=== PATIENT | male | born 1945 | race Caucasian/White ===

== ENCOUNTER 2023-09-26 09:34 | Outpatient (OUT) | payer MEDICARE, SELFPAY ==
--- NOTE | 2023-09-26 10:00 | CA_ITS ---
Patient Name: QUINTEN KANG MR#: [id number] : 1945 Exam Date: 09/26/2023 Ordering Doctor: TIFFANIE BARRON M.D. ECHOCARDIOGRAM REPORT PROCEDURE: CA ECHO DOPPLER COMPLETE INDICATIONS: Abnormal ECG, atrial fibrillation, h/o FL, cardiac stent, COPD, hypertension, diabetes, smoker COMPARISON: None. DESCRIPTION: COMPLETE ECHOCARDIOGRAM Real-time transthoracic echocardiography with 2D, M-mode, spectral and color flow Doppler performed. QUALITY: Technical quality was good. 69 , 229#, BSA 2.19 m2, BP 124/60 LEFT VENTRICLE: Normal chamber size. Normal left ventricular wall thickness. The basal and mid inferior segments appear to be hypokinetic. Global systolic function is at the lower limits of normal. LV EF: Lower limits of normal left ventricular ejection fraction, (50-55%). DIASTOLIC: Not adequately assessed due to heart rhythm. ATRIAL SEPTUM: Visually appears intact. LEFT ATRIUM: Mild dilatation. RIGHT ATRIUM: Mild dilatation. RIGHT VENTRICLE: Normal chamber size. Systolic function is normal. TRICUSPID VALVE: Normal mobility and thickness. No stenosis with trivial regurgitation. Doppler studies reveal mildly (35-45) elevated right sided pressures. RVSP 41 mmHg MITRAL VALVE: Normal mobility and thickness. No evidence of mitral valve stenosis. Mild mitral annular calcification. Mild mitral regurgitation. AORTIC VALVE: Normal trileaflet appearance. Mildly calcified aortic valve. Mildly diminished mobility. Doppler velocity suggest no significant aortic valve stenosis. Mild aortic regurgitation. AORTIC ROOT: Normal diameter and appearance. PULMONIC VALVE: Not well visualized. No stenosis. No regurgitation. PERICARDIUM: No evidence of pericardial effusion. IVC: IVC is dilated (2.3 cm) with partial collapse. PLEURA: CONCLUSION: 1. The left ventricle is normal in size and exhibits low normal systolic function. There is evidence of wall motion abnormality involving the basal and mid inferior segments. Estimated LVEF is 50 to 55%. 2. Normal right ventricular size and systolic function. 3. Mild mitral and aortic regurgitation. 4. Mildly elevated right-sided pressures. Adult Echocardiography Procedure Report Left Ventricle LVEDD (3.7 - 5.6 cm): 4.32 cm LVESD (2.2 - 4.0 cm): 4.03 cm LVIVS thickness (0.6 - 1.2 cm): 0.70 cm LVPW thickness (0.5 - 1.0 cm): 1.06 cm LVOT Max Gradient: 3.71 mm[Hg], 1.98 mm[Hg] LVOT Area (cm2): 0.83 m/s Peak Velocity (LVOT): 0.96 m/s, 0.70 m/s Mean Velocity (LVOT): 0.48 m/s LVOT Diameter 2.17 cm Left Atrium LA Volume Index (2D A2C): 37.50 ml/m2 Left Atrium Systolic Dimension: 3.83 cm Mitral Valve Mitral Valve E-Wave Peak Velocity: 1.01 m/s Right Ventricle Aorta AO Root Diam: 3.52 cm Ascending Ao Diam: 2.84 cm Aortic Valve AoV Area (Peak Brandon): 1.62 cm2, 1.97 cm2, 1.31 cm2 AoV Area (VTI): 1.71 cm2, 2.25 cm2, 1.28 cm2 Peak Velocity(Antegrade Flow): 1.81 m/s, 2.00 m/s Peak Gradient(Antegrade Flow): 13.11 mm[Hg], 15.94 mm[Hg] Mean Velocity(Antegrade Flow): 1.22 m/s, 1.31 m/s Mean Gradient(Antegrade Flow): 6.83 mm[Hg], 7.92 mm[Hg] Velocity Time Integral: 33.22 cm, 41.10 cm Tricuspid Valve Peak Velocity (Regurgitant Flow): 2.53 m/s Pulmonic Valve Peak Velocity: 0.70 m/s Peak Gradient: 2.05 mm[Hg], 1.81 mm[Hg] Right Atrium Right Atrium Systolic Pressure: 70.49 ml, 70.49 ml Dictated by: Keyon Clark M.D. on 09/26/2023 at 16:17 Approved by: Keyon Clark M.D. on 09/26/2023 at 16:24
== END 2023-09-26 09:35 | disposition home or self-care (01) ==
LOC: CARD 09:35
PROVIDERS: PCP Family Medicine; Visit Provider Internal Medicine Cardiovascular Disease
DX: R94.31 Abnormal electrocardiogram [ECG] [EKG] (principal)
CPT/HCPCS: 93306

== ENCOUNTER 2024-11-20 09:47 | Outpatient (OUT) | payer MEDICARE, SELFPAY ==
--- OUTSIDE RECORDS SUMMARY | 2024-04-28 04:59 | XMS_ITS | Continuity of Care Document ---
Author Organization [facility] Address [address] [place] [address] Phone Care Team Providers Care Brush Maker Name Role Phone Farrukh Gomez Unavailable Unavailable Procedures Procedure Date Admin influenza virus vac FLU VACC PRSV FREE INC ANTIG Covid-19 Vaccine Administration 024 Covid-19 Vaccine, 50 Mcg Moderna 12y Plu s ADM Pfizer Covid-19 Ready To Use, Booste r Pfizer Reat To Use VAC 30MCG/0.3ML IM Ap Pfizer Booster Vaccine COVID-19 Pfizer Moderna COVID Vaccine Admin Dose 2 Moderna COVID-19 Vaccine Moderna COVID Vaccine Admin Dose 1 Moderna COVID-19 Vaccine Advance Directives Directive Yes / No Effective Date File Name No Information Encounters Encounter Description Practice Location Reason(s) For Visit Diagnoses Date Provider Providers Copied on Encounter [facility], [address], [place], [id number], [place] tel:[phone] [facility] No Information Trey Keys. [address], [place], [id number], [place]. tel:[phone] [facility], [address], [place], [id number], [place] tel:[phone] [facility] No Information Trey Keys. [address], [place], [id number], [place]. tel:[phone] [facility], [address], [place], [id number], tel:[phone] [facility] No Information Trey Keys. [address], [place], [id number], . tel:[phone] [facility], [address] [place] [address], [id number], tel:[phone] [facility] No Information Trey Keys. [address], [place], [id number], [place]. tel:[phone] [facility], [address] [place] [address], [id number], tel:[phone] [facility] No Information Trey Keys. [address], [place], [id number], [place]. tel:[phone] Family History Family Member Type Diagnosis Age At Onset No Information Immunizations Vaccine Date Status Comments FluZone HD administered Source: New Imm unization Record Spikevax 12y+ administered Source: New Im munization Record Pfizer COVID 12y and up administered Sour ce: New Immunization Record Pfizer COVID administered Source: New Imm unization Record Moderna COVID administered Source: New Im munization Record Moderna COVID administered Source: New Im munization Record Payers Payer name Insurance type Covered libertarian ID Authoriza tion(s) Medicare PPS MB [id number] Medicare PPS MB [id number] [place] [employer] Medicare Adv MB [id number] [place] [employer] Medicare Adv MB [id number] Medicare PPS MB [id number] Medicare PPS MB [id number] Medicare PPS MB [id number] [place] [employer] Medicare Adv MB [id number] Social History Type Description Quantity Date Captured Comments Alcohol Use Details Unknown Caffeine Use Details Unknown Tobacco Use Status No Information Smoking Status No Information Sex Male Sexual Orientation Straight or heterosexual Gender Identity Male Chief Complaint And Reason For Visit No Information Reason For Referral Reason For Referral No Information Plan Of Treatment Date Type Action Status Goal Unhealthy drug use screening . Due on due Goal Depression screening. Due on due Goal Hepatitis C screening. Due o n due Goal Tdap. Due on due Goal Zoster vaccine (). Due on due Goal Influenza vaccine. Due on Oc due Goal PRAPARE ASSESSMENT. Due on O due Goal Tdap Vaccine. Due on 2023 due History Of Present Illness Encounter Date Complaint History Of Prese nt Illness No Information Functional Status Date Functional Assessmen t No Information Instructions Date Instruction Additional Infor mation No Information Assessments Type Assessment Date No Information Patient Care Teams Name Effective Dates (start - stop) Status Members No Information
--- OUTSIDE RECORDS SUMMARY | 2024-07-16 07:00 | XMS_ITS ---
Author Organization [facility] [place] Address [address] [place] [address] Care Team Providers Care Change Booth Attendant Name Role Phone Krzysztofroque MIKEBao Primary Care Provider Unavail able Pato You Unavailable [phone] Allergies No Known Allergies REASON FOR VISIT 1 mos F/U COPD Medications Medication SIG (Take, Route, Frequency, Duration) Notes Start Date End Date Status Metoprolol Tartrate 50 MG Oral for 90 Days Active metFORMIN HCl 500 MG 1 tablet with a nicole l Orally Once a day for 30 day(s) 05/28/2024 Active dilTIAZem HCl ER Coated Beads 240 MG TAKE 1 CAPSULE BY MOUTH EVERY DAY Oral for 90 Days Activ e Furosemide 20 MG TAKE 1 TABLET BY DAVINA TH EACH MORNING FOR LEG SWELLING Oral for 90 Days Active Eliquis 5 MG TAKE 1 TABLET BY DAVINA TH TWICE A DAY Oral for 30 Days Active Trelegy Ellipta 200-62.5-25 MCG/ACT 1 puff Inhalation Once a day Active Trelegy Ellipta 100-62.5-25 MCG/ACT 1 puff Inhalation QD for 90 days Rinse after use Active Aspirin 81 81 MG 1 tablet Orally Once a day Active Albuterol Sulfate HFA 108 (90 Base) MCG/ACT 2 puffs as needed Inhalation every 4 hrs Active Social History Tobacco Use: Social History Observation Description Date Details (start date - stop date) Former Smoker NA - NA Tobacco Control (Standard) Question Answer Notes Tobacco use: Former smoker How long has it been since y ou last smoked? 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) Cigarette nicotine dependence with nicotine-induce d disorder (F17.219) Active confirmed Vital Signs Temperature 96.8 degrees Fahrenheit 07/16/19 25 Blood pressure systolic 111 mm Hg 07/16/19 25 Blood pressure diastolic 68 mm Hg 025 Heart Rate 70 /min 07/16/2024 Respiratory Rate 18 /min 07/16/2024 Height 69.3 in 07/16/2024 Weight 226.8 lbs 07/16/2024 BMI 33.2 kg/m2 07/16/2024 Oximetry 93 % 07/16/2024 3L O2 Activity/Resting Encounters Encounter Location Date Provider Diagnosis [facility] [place] [address] [place] [address] 07/16/2024 Pato You Centrilobular emphys [place] J43.2 ; Chronic respiratory failure with hypoxia J96.11 ; Cigarette nicotine dependence with nicotine-induced disorder F17.219 ; Other secondary pulmonary hypertension I27.29 ; CAD (coronary artery disease) I25.10 ; Atrial fibrillation, unspecified I48.91 and Obesity, class 1 E66.811 Assessments Encounter Date Diagnosis (ICD Code) Assessment Notes Treatment Notes Treatment Clinical Notes Section Notes 07/16/2024 Centrilobular emphysema (ICD-10 - J43.2) Prior treatment: Trelegy 200 ~ Trelegy 100 > Stiolto Overall, it appears that Trelegy symptoms somewhat compared to Stiolto. Admits that albuterol use has decreased from at least 3 times a day with Stiolto to 1 time a day with Trelegy. There appears to be less benefit changing Trelegy from 100 to 200 strength. Explained that the higher Trelegy dose increases the risk of oral candidiasis, and long-term use of high potency inhaled steroids can contribute to osteoporosis (though this is typically for durations of 4 years or greater). After discussing risks and benefits of treatment, the patient elected to go with Trelegy 100, which was sent into his pharmacy. Time being, he will finish out his Trelegy 200 samples, to be about 2 and half months worth. I will be interesting to see if his symptoms worsen after dropping from the 200 down to the 100 strength. If he does notice a profound difference, he can call the office and I can prescribe the Trelegy 200. F/U 6 months, or sooner PRN. 07/16/2024 Chronic respiratory failure with hypoxia (ICD-10 - J96.11) Gbhp-de-kgex encounter performed with the patient to document continued need for supplemental oxygen (O2). -Flow & directions: 2-3L/min ATC -Patient voices adherence to recommended usage: For the most part. -Symptom control on O2: Less SOB -Counseled patient not begin, restart, or continue smoking, around the O2 due to risk of fire which could result in damage to the O2 tanks & lines, smoke inhalation and flame damage to the airway, significant tijer[place], potential , property damage, and potential harm & to bystanders. Additionally, counseled it is not valentine to begin, restart, or continue smoking given the underlying pulmonary disease that led to the point of requiring O2. -Recommendations: I do not feel that 2L/min is adequate flow with ambulation; even 3L/min may be too little. Monitor his SpO2 and symptoms with ambulation. May require 4L/min to maintain SpO2 88% or greater. 07/16/2024 Cigarette nicotine dependence with nicotine-induced disorder (ICD-10 - F17.219) 1ppd x 65 years, quit briefly in 2023 PATIENT RESTARTED SMOKING!!! At 1 to 2 cigarettes a day, that is 1 to 2 cigarettes/min. I explained that there will be limited improvement in his breathing at this point if he continues to smoke. His pulmonary function is very poor. There is no AAT deficiency however. He voiced he knows he has to stop, but it is difficult as he is 79 years old and has a habit of smoking. I encouraged him to keep working at stopping. He is counseled if he does continue to smoke cannot smoke around his O2 so he does not blow up his house. He does not meet current LDCT screening criteria due to age. 07/16/2024 Other secondary pulmonary hypertension (ICD-10 - I27.29) Echo 09/21/2023 noted RVSP 41mmHg. This is mild elevation, likely due to a combination of emphysema (group 3) and cardiovascular disease such as CAD (group 2). 07/16/2024 CAD (coronary artery disease) (ICD-10 - I25.10) F/U with [facility] Cardiology. 07/16/2024 Atrial fibrillation, unspecified (ICD-10 - I48.91) F/U with [facility] Cardiology. 07/16/2024 Obesity, class 1 (ICD-10 - E66.811) Patient's weight is inducing a restrictive pulmonary physiology. Weight loss indicated: Decrease calories, increase activity. 07/16/2024 Other Plan Of Treatment Medication Medication Name Sig Start Date Stop Date Notes Trelegy Ellipta 100-62.5-25 MCG/ACT 1 puff Inhalation QD for 90 days Treatment Notes Assessment Notes Centrilobular emphysema Prior treatment: Trelegy 200 ~ Trelegy 100 > Stiolto Overall, it appears that Trelegy symptoms somewhat compared to Stiolto. Admits that albuterol use has decreased from at least 3 times a day with Stiolto to 1 time a day with Trelegy. There appears to be less benefit changing Trelegy from 100 to 200 strength. Explained that the higher Trelegy dose increases the risk of oral candidiasis, and long-term use of high potency inhaled steroids can contribute to osteoporosis (though this is typically for durations of 4 years or greater). After discussing risks and benefits of treatment, the patient elected to go with Trelegy 100, which was sent into his pharmacy. Time being, he will finish out his Trelegy 200 samples, to be about 2 and half months worth. I will be interesting to see if his symptoms worsen after dropping from the 200 down to the 100 strength. If he does notice a profound difference, he can call the office and I can prescribe the Trelegy 200. F/U 6 months, or sooner PRN. Chronic respiratory failure with hypoxia Bpbk-tt-krjz encounter performed with the patient to document continued need for supplemental oxygen (O2). -Flow & directions: 2-3L/min ATC -Patient voices adherence to recommended usage: For the most part. -Symptom control on O2: Less SOB -Counseled patient not begin, restart, or continue smoking, around the O2 due to risk of fire which could result in damage to the O2 tanks & lines, smoke inhalation and flame damage to the airway, significant tijerina, potential , property damage, and potential harm & to bystanders. Additionally, counseled it is not valentine to begin, restart, or continue smoking given the underlying pulmonary disease that led to the point of requiring O2. -Recommendations: I do not feel that 2L/min is adequate flow with ambulation; even 3L/min may be too little. Monitor his SpO2 and symptoms with ambulation. May require 4L/min to maintain SpO2 88% or greater. Cigarette nicotine dependenc e with nicotine-induced disorder 1ppd x 65 years, quit briefly in 2023 PATIENT RESTARTED SMOKING!!! At 1 to 2 cigarettes a day, that is 1 to 2 cigarettes/min. I explained that there will be limited improvement in his breathing at this point if he continues to smoke. His pulmonary function is very poor. There is no AAT deficiency however. He voiced he knows he has to stop, but it is difficult as he is 79 years old and has a habit of smoking. I encouraged him to keep working at stopping. He is counseled if he does continue to smoke cannot smoke around his O2 so he does not blow up his house. He does not meet current LDCT screening criteria due to age. Other secondary pulmonary hypertension Echo 09/21/2023 noted RVSP 41mmHg. This is mild elevation, likely due to a combination of emphysema (group 3) and cardiovascular disease such as CAD (group 2). CAD (coronary artery disease) F/U with [facility] Cardiology. Atrial fibrillation, unspecified F/U with [facility] Cardiology. Obesity, class 1 Patient's weight is inducing a restrictive pulmonary physiology. Weight loss indicated: Decrease calories, increase activity. Next Appt Details Follow Up: 6 Months, Reason: COPD, O2 Provider Name:Pato You, 01/20/2025 10:30:00 AM, [address] [place], [address], Procedure Notes * Category Sub-Category Detail Notes PFT Data: 10/19/2022 - [facility] [place] -FEV1/FVC: 36%-FEV1: 45%-FVC: 89%-GTN50-28%: 19%-Bronchodilator response: None-RV: 100%-T%-DLCO: 48%-Apparently no significant change from 07/25/2017 Alpha-1 Antitrypsin Screening Date: 05/28/2024 Genotype: MM Progress Notes * Franki MESSINA LDOB: [birth year] (79 yo M)Acc No.[id number]:07/16/2024 Follow Up Patient: Franki HARGROVE Provider: Surekha You, :1945 A ge:79 Y S ex:Male Date:07/16/2024 Address:[facility] [address] [id number] Pcp:Bao Bartlett, DO Check In:10:47 AM ESTCheck O ut:11:26 AM EST Subjective: * Chief Complaints: * 1 mos F/U COPD * HPI: G eneral: Last visit, his inhaler was changed from Stiolto to Trelegy 100 as he stated he did not believe that Stiolto was helping. He returned a call stating that he did not see a significant change from Stiolto. He said the neighbor had some samples of Trelegy 200 and he was going to take those. He does not think that there has been a tremendous improvement in his breathing regarding any inhaler, but his who is present believes that he is less short of breath on Trelegy compared to Stiolto. There does not appear to be as a profound improvement in his breathing went from the 100 to 200 strength compared to Stiolto to Trelegy 100. He denies any adverse effects on Trelegy, he is rinsing after use no complaints suggestive of thrush. Still complains of dyspnea on exertion. His SpO2 was drops with activity into the 80s despite 3L/min. He admits that he restarted smoking about 1-2 cigarettes a day. Reviewed that his chest x-ray on 06/12/2024 was unremarkable. AAT from 05/28/2024 showed normal genotype MM. MA Intake Comments:. Patient presents for a follow-up for COPD. Patient is currently on 3L O2 at home. DME:[facility]. Patient complains of SOB but states he has improved with Trelegy. Patient is using his rescue inhaler once per day. Patient reports having to use it less now than when he was taking Stiolto. Patient had a CXR performed on 06/12/2024 at [facility]. Patient is under the care of [facility] Cardiology. * ROS: G eneral/Constitutional: Fever or sweats d enies. C hange of appetite d enies. C hills d enies. W eight Change d enies. H EENT: Dry mouth d enies. S ore throat d enies. O ral Ulcers d enies. P ost Nasal Drip D enies. C ongestion D enies. H oarseness?Denies. C ardiovascular: Tachycardia d enies. E ed D enies. C hest pain d enies. P alpitations d enies. R espiratory: Chest tightness d enies. P leurisy D enies. D yspnea a dmits. C ough a dmits. H emoptysis d enies. W heezing a dmits. G astrointestinal: Acid Reflux/GERD/Heartburn d enies. D ysphagia d enies. M usculoskeletal: Arthralgias/joint pain D enies. S kin: Easy bruising d enies. N eurologic: Seizures d enies. T remor d enies. H ematology: Abnormal Bleeding d enies. P sychiatric: Anxiety d enies. * Active Problem List J43.2 Centrilobular emphys [place] Modified On:05/28/2024/U Status:confirmed J96.11 Chronic respiratory failure with hypoxia Modified On:05/28/2024/U Status:confirmed I25.10 CAD (coronary artery disease) Modified On:05/28/2024/U Status:confirmed F17.219 Cigarette nicotine d ependence with nicotine-induced disorder Modified On:07/16/2024/U Status:confirmed I48.91 Atrial fibrillation, unspecified Modified On:05/28/2024/U Status:confirmed I27.29 Other secondary pulm onary hypertension Modified On:05/28/2024/U Status:confirmed * Medical History: * Surgical History: t onsillectomy shoulder replacement-left shoulder arthroscopy-right cervical fusion/laminectomy carpal tunnel release-bilateral vascular bypass hernia repair coronary artery bypass graft * Hospitalization/Major Diagno stic Procedure: D enies Past Hospitalization * Family History: Angelika strange(s): COPD. M other: diagnosed with Unspecified heart disease. S ister(s): diagnosed with Diabetes mellitus without mention of complication, type II or unspecified type, not stated as uncontrolled. * Social History: T obacco Use: T obacco Control (Standard) T obacco use: F ormer smoker H ow long has it been since you last smoked??1-3 months A dditional Findings: Tobacco non-user E x-moderate cigarette smoker (10-19/day) Electronic Cigarette use C urrent user N o LM: Additional Tobacco Questions N umber of Years Pt Smoked: 6 5 N umber of Packs per Day: 1 When did you stop smokin03/2024. M iscellaneous: O ccupation O ccupation: R primo [employer] [place]: none. D rugs/Alcohol: D rugs H ave you used drugs other than those for medical reasons in the past 12 months? N o D oes the Patient have a History of Drug Abuse in the Past? N o Caffeine I ntake: 1 -2 cups per day Coffee Do you drink alcohol?: No. Do you smoke marijuana?: Denies. * Medications: T akingAlbuterol Sulfate HFA 108 (90 Base) MCG/ACT Aerosol Solution 2 puffs as needed Inhalation every 4 hrs Aspirin 81(Aspirin) 81 MG Tablet Delayed Release 1 tablet Orally Once a day dilTIAZem HCl ER Coated Beads 240 MG Capsule Extended Release 24 Hour TAKE 1 CAPSULE BY MOUTH EVERY DAY Oral Eliquis(Apixaban) 5 MG Tablet TAKE 1 TABLET BY MOUTH TWICE A DAY Oral Furosemide 20 MG Tablet TAKE 1 TABLET BY MOUTH EACH MORNING FOR LEG SWELLING Oral metFORMIN HCl 500 MG Tablet 1 tablet with a meal Orally Once a day Metoprolol Tartrate 50 MG Tablet Oral Trelegy Ellipta(Cynequgehyx-Babbmxgqc-Ufoqpu) 200-62.5-25 MCG/ACT Aerosol Powder Breath Activated 1 puff Inhalation Once a day Taking Albuterol Sulfate HFA 108 (90 Base) MCG/ACT Aerosol Solution 2 puffs as needed Inhalation every 4 hrs Taking Aspirin 81(Aspirin) 81 MG Tablet Delayed Release 1 tablet Orally Once a day Taking dilTIAZem HCl ER Coated Beads 240 MG Capsule Extended Release 24 Hour TAKE 1 CAPSULE BY MOUTH EVERY DAY Oral Taking Eliquis(Apixaban) 5 MG Tablet TAKE 1 TABLET BY MOUTH TWICE A DAY Oral Taking Furosemide 20 MG Tablet TAKE 1 TABLET BY MOUTH EACH MORNING FOR LEG SWELLING Oral Taking metFORMIN HCl 500 MG Tablet 1 tablet with a meal Orally Once a day Taking Metoprolol Tartrate 50 MG Tablet Oral Taking Trelegy Ellipta(Eqimcjibgtq-Tejupbqxh-Fjqthk) 200-62.5-25 MCG/ACT Aerosol Powder Breath Activated 1 puff Inhalation Once a day Not-Taking/PRNTrelegy Ellipta(Zbxdxmacwtg-Geezfhmgt-Xyrrhd) 100-62.5-25 MCG/ACT Aerosol Powder Breath Activated 1 puff Inhalation Once a day Medication List reviewed and reconciled with the patientNot-Taking/PRN Trelegy Ellipta(Gbumahiodlj-Sbderrcye-Rikzin) 100-62.5-25 MCG/ACT Aerosol Powder Breath Activated 1 puff Inhalation Once a day Medication List reviewed and reconciled with the patient * Allergies: N .K.D.A.no[Allergies Verified] Objective: * Vitals: W t:226.8lbs, Ht: 69.3 in, BP:sittin/68mm Hg, Temp:Forehead:96.8F, HR: 79 /min,70/min, RR:18/min, BMI:33.2Index, Oxygen sat %: Oxygen 3l:86 %,Oxygen 3l:93%, Ht-cm: 176.02 cm, Wt-k.87 kg. 3L O2 Activity/Resting. * Examination: E xam: GENERAL APPEARANCE: A ppears stated age. Skin N ormal. Mouth P ink and moist. No candidiasis. Oropharynx M allampati Class II. Trachea M idline. Chest M ild thoracic kyphosis. Respiratory Normal M ovements, E ffort N ormal. Auscultation D iminished breath sounds. Less coarse. Expiratory wheezes on wall with forced exhalation. Cardiac I rregularly irregular. Gastrointestinal N ormal. Vascular N o edema. Musculoskeletal N ormal posture. Neurological F ocal, intact. Psychiatric A lert and oriented x3. Mentation/Cognition N ormal. Assessment: * Assessment: 1. C entrilobular emphysema - J43.2 (Primary) 2 . C hronic respiratory failure with hypoxia - J96.11 3 . C igarette nicotine dependence with nicotine-induced disorder - F17.219 4 . O ther secondary pulmonary hypertension - I27.29 & #160; 5 . C AD (coronary artery disease) - I25.10 6 . A trial fibrillation, unspecified - I48.91 7 . O besity, class 1 - E66.811 Plan: * Treatment: 2. C hronic respiratory failure with hypoxia Notes: Hwhb-gv-smhf encounter performed with the patient to document continued need for supplemental oxygen (O2). -Flow & directions: 2-3L/min ATC -Patient voices adherence to recommended usage: For the most part. -Symptom control on O2: Less SOB -Counseled patient not begin, restart, or continue smoking, around the O2 due to risk of fire which could result in damage to the O2 tanks & lines, smoke inhalation and flame damage to the airway, significant tijer[place], potential , property damage, and potential harm & to bystanders. Additionally, counseled it is not valentine to begin, restart, or continue smoking given the underlying pulmonary disease that led to the point of requiring O2. -Recommendations: I do not feel that 2L/min is adequate flow with ambulation; even 3L/min may be too little. Monitor his SpO2 and symptoms with ambulation. May require 4L/min to maintain SpO2 88% or greater. 3. C igarette nicotine dependence with nicotine-induced disorder Notes: 1ppd x 65 years, quit briefly in 2023 PATIENT RESTARTED SMOKING!!! At 1 to 2 cigarettes a day, that is 1 to 2 cigarettes/min. I explained that there will be limited improvement in his breathing at this point if he continues to smoke. His pulmonary function is very poor. There is no AAT deficiency however. He voiced he knows he has to stop, but it is difficult as he is 79 years old and has a habit of smoking. I encouraged him to keep working at stopping. He is counseled if he does continue to smoke cannot smoke around his O2 so he does not blow up his house. He does not meet current LDCT screening criteria due to age. 4. O ther secondary pulmonary hypertension Notes: Echo 09/21/2023 noted RVSP 41mmHg. This is mild elevation, likely due to a combination of emphysema (group 3) and cardiovascular disease such as CAD (group 2). 5. C AD (coronary artery disease) Notes: F/U with [facility] Cardiology. 6. A trial fibrillation, unspecified Notes: F/U with [facility] Cardiology. 7. O besity, class 1 Notes: Patient's weight is inducing a restrictive pulmonary physiology. Weight loss indicated: Decrease calories, increase activity. * Procedures: A lpha-1 Antitrypsin: Screening Date: 1 07/28/2023. Genotype: M M. P FT: Data: 10/19/2022 - [facility] -FEV1/FVC: 36% -FEV1: 45% -FVC: 89% -COG32-49%: 19% -Bronchodilator response: None -RV: 100% -T% -DLCO: 48% -Apparently no significant change from 07/25/2017.? * Procedure Codes: * Preventive Medicine: COVID Vaccination: H as patient had COVID Vaccination? COVID Vaccination Y es 04/28/2024 Immunization Status: I nfluenza 1 . Screenings/Counseling: F ALL RISK SCREENING Fall Risk Assessment: N o falls in the past year Are you afraid of falling? N o T [place]AC[place] ACTION PLAN Patient counselled on the dangers of tobacco use and urged to quit. 0 07/16/2024 Former Educational materials on smoking cessation provided 0 07/16/2024 Former B FL ACTION PLAN Above Normal BMI Follow-up D ietary management education, guidance, and counseling * Follow Up: 6 Months (Reason: COPD, O2) * * Sign off status: Completed Visit Status: C HK (Check Out) true * Provider: Surekha You DO Date: 0 07/16/2024 Generated for Surekha boggs/Babak/Teoitting on: 0 11/20/2024 09:50 AM EDT History and Physical Notes * HPI (History of Present Illness) Category Sub-Category Detail Notes Category Not es General Patient present s for a follow-up for COPD. Patient is currently on 3L O2 at home. DME:[facility]. Patient complains of SOB but states he has improved with Trelegy. Patient is using his rescue inhaler once per day. Patient reports having to use it less now than when he was taking Stiolto. Patient had a CXR performed on 06/12/2024 at [facility]. Patient is under the care of [facility] Cardiology. Examination Category Sub-Category Detail Notes Category Not es Exam GENERAL APPEARANCE: Appears stated age Skin Normal Mouth [place] and moist. No c andidiasis Trachea Midline Chest Mild thoracic kyphos is Respiratory Normal Movements, Ef fort Normal Auscultation Diminished breath so unds. Less coarse. Expiratory wheezes on wall with forced exhalation Cardiac Irregularly irregula r Gastrointestinal Normal Vascular No edema Musculoskeletal Normal posture Neurological Focal, intact Psychiatric Alert and oriented x 3 Mentation/Cognition Normal Oropharynx Mallampati Class II
--- OUTSIDE RECORDS SUMMARY | 2024-11-12 07:43 | XMS_ITS ---
Author Organization [facility] [place] Address [address] [place] [address] Care Team Providers Care Crankshaft Grinder Name Role Phone Tri MIKEBao Primary Care Provider Unavail Pato Chávez Unavailable [phone] REASON FOR VISIT Pulmonary Clearance Encounters Encounter Location Date Provider Diagnosis Pul[facility] [place] [address] [place] [address] 11/12/2024 Pato You Plan Of Treatment Next Appt Details Provider Name:Pato You, 01/20/2025 10:30:00 AM, [address] [place], [address], Progress Notes * Franki MESSINA LDOB: [birth year] (79 yo M)Acc No.[id number]:11/12/2024 Patient: Franki HARGROVE :1945 A ge:79 Y S ex:Male Address:[facility] [address] [place], [address] * true * Date: Generated for Surekha boggs/Babak/eTransmitting on: 0 11/20/2024 09:50 AM EDT
--- OUTSIDE RECORDS SUMMARY | 2024-11-17 06:00 | XMS_ITS ---
Author Organization [facility] [place] Address [address] [place] [address] Care Team Providers Care Health Science Instructor Name Role Phone Krzysztofroque MIKEBao Primary Care Provider Unavail able Meka Youhan Unavailable [phone] Allergies No Known Allergies REASON FOR VISIT PULMONARY CLEARANCE Medications Medication SIG (Take, Route, Frequency, Duration) Notes Start Date End Date Status Metoprolol Tartrate 50 MG Oral for 90 Days Active Stiolto Respimat 2.5-2.5 MCG/ACT 2 puffs Inhalation Once a day Active metFORMIN HCl 500 MG 1 tablet with a nicole l Orally Once a day for 30 day(s) 05/28/2024 Active Eliquis 5 MG TAKE 1 TABLET BY DAVINA TH TWICE A DAY Oral for 30 Days Active Aspirin 81 81 MG 1 tablet Orally Once a day Active dilTIAZem HCl ER Coated Beads 240 MG TAKE 1 CAPSULE BY MOUTH EVERY DAY Oral for 90 Days Activ e Furosemide 20 MG TAKE 1 TABLET BY DAVINA TH EACH MORNING FOR LEG SWELLING Oral for 90 Days Active Albuterol Sulfate HFA 108 (90 Base) MCG/ACT 2 puffs as needed Inhalation every 4 hrs Active Social History Tobacco Use: Social History Observation Description Date Details (start date - stop date) Current Smoker NA - NA Tobacco Control (Standard) Question Answer Notes Tobacco use: Current every day smoker Additional Findings: Tobacco user Light cigarett e smoker (1-9 cigs/day) Additional Findings: Tobacco non-user Ex-moderat e cigarette smoker (10-19/day) Problems Problem Type SNOMED Code ICD Code Onset Dates Problem Status W/U Status Risk Notes Problem Neoplasm of bladder (275762426) Bladder tumor (D49.4) Active confirmed Vital Signs Temperature 96.7 degrees Fahrenheit 11/18/19 25 Blood pressure systolic 127 mm Hg 11/18/19 25 Blood pressure diastolic 75 mm Hg 025 Heart Rate 75 /min 11/17/2024 Respiratory Rate 20 /min 11/17/2024 Height 69.3 in 11/17/2024 Weight 220.4 lbs 11/17/2024 BMI 32.26 kg/m2 11/17/2024 Oximetry 91 % 11/17/2024 Encounters Encounter Location Date Provider Diagnosis Pulmonary Medicine [place] [address] [place] [address] 11/17/2024 Pato Avelino Encounter for preprocedural respiratory examination Z01.811 ; Centrilobular emphysema J43.2 ; Chronic respiratory failure with hypoxia J96.11 ; Cigarette nicotine dependence with nicotine-induced disorder F17.219 ; Bladder tumor D49.4 and Obesity, class 1 E66.811 Assessments Encounter Date Diagnosis (ICD Code) Assessment Notes Treatment Notes Treatment Clinical Notes Section Notes 11/17/2024 Encounter for preprocedural respiratory examination (ICD-10 - Z01.811) Preop pulmonary evaluation for cystoscopy with bladder tumor removal. Anesthesia is general. Relatively low-risk urological procedure. Patient did well with ENT surgery 08/08/2023 which also had general anesthesia. He is on Stiolto and O2 ATC for COPD, using albuterol 1-2 times a day. No exacerbations within the last ~6 months. Though Trelegy was better than Stiolto, not being on Trelegy should not interfere with any surgeries. Patient appears acceptable to proceed with the proposed surgery. He was counseled on smoking cessation again. He is to continue using Stiolto, and I recommend using it the morning of the procedure. Anesthesia should be prepared for perioperative bronchodilators. Continue O2. With the above, he may proceed with surgery from a pulmonary perspective. 11/17/2024 Centrilobular emphysema (ICD-10 - J43.2) Prior treatment: Trelegy 200 ~ Trelegy 100 > Stiolto Trelegy changed to Stiolto d/t cost. Albuterol use has increased slightly, but not significantly. More important is that he stop smoking. 11/17/2024 Chronic respiratory failure with hypoxia (ICD-10 - J96.11) Xqsl-vk-ytfb encounter performed with the patient to document continued need for supplemental oxygen (O2). -Flow & directions: 2-3L/min ATC -Patient voices adherence to recommended usage: Yes -Symptom control on O2: Decreased dyspnea -Counseled patient not begin, restart, or continue [...] to the point of requiring O2. -Recommendations: Continue O2 ATC 11/17/2024 Cigarette nicotine dependence with nicotine-induced disorder (ICD-10 - F17.219) 1ppd x 65 years, quit briefly in 2023 Discussed smoking cessation yet again and the importance of cessation not only including COPD and lung cancer risk, but also association with bladder cancer. He did not voice any intent to quit at this time. He does not meet current LDCT screening criteria due to age. 11/17/2024 Bladder tumor (ICD-10 - D49.4) Planned cystoscopy and bladder tumor removal. 11/17/2024 Obesity, class 1 (ICD-10 - E66.811) Patient's weight is inducing a restrictive pulmonary physiology. Weight loss indicated: Decrease calories, increase activity. 11/17/2024 Other Plan Of Treatment Treatment Notes Assessment Notes Encounter for preprocedural respiratory examination Preop pulmonary evaluation for cystoscopy with bladder tumor removal. Anesthesia is general. Relatively low-risk urological procedure. Patient did well with ENT surgery 08/08/2023 which also had general anesthesia. He is on Stiolto and O2 ATC for COPD, using albuterol 1-2 times a day. No exacerbations within the last ~6 months. Though Trelegy was better than Stiolto, not being on Trelegy should not interfere with any surgeries. Patient appears acceptable to proceed with the proposed surgery. He was counseled on smoking cessation again. He is to continue using Stiolto, and I recommend using it the morning of the procedure. Anesthesia should be prepared for perioperative bronchodilators. Continue O2. With the above, he may proceed with surgery from a pulmonary perspective. Centrilobular emphysema Prior treatment: Trelegy 200 ~ Trelegy 100 > Stiolto Trelegy changed to Stiolto d/t cost. Albuterol use has increased slightly, but not significantly. More important is that he stop smoking. Chronic respiratory failure with hypoxia Mdek-ko-aiwz encounter performed with the patient to document continued need for supplemental oxygen (O2). -Flow & directions: 2-3L/min ATC -Patient voices adherence to recommended usage: Yes -Symptom control on O2: Decreased dyspnea -Counseled patient not begin, restart, or continue smoking, around the O2 due to risk of fire which could result in damage to the O2 tanks & lines, smoke inhalation and flame damage to the airway, significant itjerina, potential , property damage, and potential harm & to bystanders. Additionally, counseled it is not valentine to begin, restart, or continue smoking given the underlying pulmonary disease that led to the point of requiring O2. -Recommendations: Continue O2 ATC Cigarette nicotine dependenc e with nicotine-induced disorder 1ppd x 65 years, quit briefly in 2023 Discussed smoking cessation yet again and the importance of cessation not only including COPD and lung cancer risk, but also association with bladder cancer. He did not voice any intent to quit at this time. He does not meet current LDCT screening criteria due to age. Bladder tumor Planned cystoscopy and bladder tumor removal. Obesity, class 1 Patient's weight is inducing a restrictive pulmonary physiology. Weight loss indicated: Decrease calories, increase activity. Next Appt Details Provider Name:Pato You, 01/20/2025 10:30:00 AM, [address] [place], [address], Procedure Notes * Category Sub-Category Detail Notes [place]: [place] [facility] [place]FVC[place] 36%-FEV1: 45%-FVC: 89%-NSD37-45%: 19%-Bronchodilator response: None-RV: 100%-T%-DLCO: 48%-Apparently no significant change from 07/25/2017 Alpha-1 Antitrypsin Screening Date: 05/28/2024 Genotype: MM Progress Notes * Franki MESSINA LDOB: [birth year] (79 yo M)Acc No.[id number]:11/17/2024 Progress Note Patient: Franki HARGROVE Provider: Surekha You DO :1945 A ge:79 Y S ex:Male Date:11/17/2024 Address:[facility] [address] [place], [id number] Pcp:Bao Bartlett, DO Check In:09:42 AM ESTCheck O ut:10:19 AM EST Subjective: * Chief Complaints: * P ULMONARY CLEARANCE * HPI: G eneral: PRE-OP PULMONARY EVALUATION Patient had hematuria, found to have bladder tumor. Plans are for cystoscopy with tumor removal by Dr. Rodriguez. Anesthesia is general. Since patient was last seen, he changed back from Trelegy to Stiolto - Trelegy worked better, but too expensive - Stiolto is covered by insurance. Albuterol use is 1-2 times a day - was only once with Trelegy, and prior to that, was 3x/day when on Stiolto the first time, so this could be seen as slight improvement. Unfortunately, the patient continues to smoke, and is now up from 1-2/day to ~5/day. Discussed the link between both lung and bladder cancer and tobacco abuse. He remains on O2 ~3L/min. Reports no hypoxia - SpO2 has remained in the 90's (not dropping into the 80's). Last surgery was some sort of head & neck surgery by Dr. Booth on [place]/08/2023 [place] [facility] [place] Anesthesia was general - the patient had no complications. MA Intake Comments:. Patient presents for Pulmonary Clearance. Patient is being scheduled for a Cystoscopy/Bladder tumor removal with on 12/04/2024. Patient is currently on 3L O2 at home. DME:[facility]. Patient complains of SOB with exertion. Patient admits to smoking 5 cigarettes per day. Patient is [facility] along with his rescue inhaler. Patient reports benefit. Patient is under the care of [facility] Cardiology and scheduled for an appointment on 11/26/2024 with [facility]. * ROS: G eneral/Constitutional: Fever or sweats [...] enies. P alpitations d enies. R espiratory: Pleurisy D enies. D yspnea a dmits. C [...] Problem List J43.2 Centrilobular emphys [place] Modified On:05/28/2024U Status:confirmed J96.11 Chronic respiratory failure with hypoxia Modified On:05/28/2024U Status:confirmed I25.10 CAD (coronary artery disease) Modified On:05/28/2024U Status:confirmed F17.219 Cigarette nicotine d ependence with nicotine-induced disorder Modified On:07/16/2024/U Status:confirmed I48.91 Atrial fibrillation, unspecified Modified On:05/28/2024U Status:confirmed D49.4 Bladder tumor Modified On:11/17/2024/U Status:confirmed I27.29 Other secondary pulm onary hypertension Modified On:05/28/2024U Status:confirmed * Medical History: * Surgical History: t onsillectomy shoulder replacement-left shoulder arthroscopy-right cervical fusion/laminectomy carpal tunnel release-bilateral vascular bypass hernia repair coronary artery bypass graft * Hospitalization/Major Diagno stic Procedure: D enies Past Hospitalization * Family History: B rother(s): COPD. M other: diagnosed with Unspecified heart disease. S ister(s): diagnosed with Diabetes mellitus without mention of complication, type II or unspecified type, not stated as uncontrolled. * Social History: T obacco Use: T obacco Control (Standard) T obacco use: C urrent every day smoker A dditional Findings: Tobacco user L ight cigarette smoker (1-9 cigs/day) A dditional Findings: Tobacco non-user E x-moderate cigarette smoker (10-19/day) Electronic Cigarette use C urrent user N o LM: Additional Tobacco Questions N umber of Years Pt Smoked: 6 5 N umber of Packs per Day: 1 M iscellaneous: O ccupation O ccupation: R etired SocialDefender /Foundry Pets: none. D rugs/Alcohol: D rugs H [...] day Metoprolol Tartrate 50 MG Tablet Oral Stiolto Respimat(Tiotropium [place]-Olodaterol) 2.5-2.5 MCG/ACT Aerosol Solution 2 puffs Inhalation Once a day Taking Albuterol Sulfate [...] Metoprolol Tartrate 50 MG Tablet Oral Taking Stiolto Respimat(Tiotropium [place]-Olodaterol) 2.5-2.5 MCG/ACT Aerosol Solution 2 puffs Inhalation Once a day DiscontinuedTrelegy Ellipta(Gymqkavbcdt-Yjezmvgvq-Lhupji) 100-62.5-25 MCG/ACT Aerosol Powder Breath Activated 1 puff Inhalation QD Rinse after useTrelegy Ellipta(Yvqzdmswvug-Ztglyhpts-Mqccxe) 200-62.5-25 MCG/ACT Aerosol Powder Breath Activated 1 puff Inhalation Once a day Medication List reviewed and reconciled with the patientDiscontinued Trelegy Ellipta(Pvyoxsbhifc-Kmsmamznc-Nwdvlh) 100-62.5-25 MCG/ACT Aerosol Powder Breath Activated 1 puff Inhalation QD Rinse after useDiscontinued Trelegy Ellipta(Dbvrajihkno-Wixfgjtti-Lfloid) 200-62.5-25 MCG/ACT Aerosol Powder Breath Activated 1 puff Inhalation Once a day Medication List reviewed and reconciled with the patient * Allergies: N .K.D.A.no[Allergies Verified] Objective: * Vitals: W t:220.4lbs, Ht: 69.3 in, BP:sittin/75mm Hg, Temp:Forehead:96.7F, HR:75/min, RR:20/min, BMI:32.26Index, Oxygen sat %:Oxygen 3l:91%, Ht-cm: 176.02 cm, Wt-k.97 kg. * Examination: E xam: GENERAL APPEARANCE: A ppears stated age. Skin N ormal. Mouth P ink and moist. No candidiasis. Oropharynx M allampati Class II. Trachea M idline. Chest M ild thoracic kyphosis. Respiratory Normal M ovements, E ffort N ormal. Auscultation D iminished with diffuse coarse breath sounds with expiratory wheezes. Cardiac I rregularly irregular. Gastrointestinal N ormal. Vascular N o edema. Musculoskeletal N ormal posture. Neurological F ocal, intact. Psychiatric A lert and oriented x3. Mentation/Cognition N ormal. Assessment: * Assessment: 1. E ncounter for preprocedural respiratory examination - Z01.811 (Primary) 2 .?Centrilobular emphysema - J43.2 3 . C hronic respiratory failure with hypoxia - J96.11 4 . C igarette nicotine dependence with nicotine-induced disorder - F17.219 5 . B ladder tumor - D49.4 6 . O besity, class 1 - E66.811 Plan: * Treatment: 2. C entrilobular emphysema Notes: Prior treatment: Trelegy 200 ~ Trelegy 100 > Stiolto Trelegy changed to Stiolto d/t cost. Albuterol use has increased slightly, but not significantly. More important is that he stop smoking. 3. C hronic respiratory failure with hypoxia Notes: Dbgv-tp-ztro encounter performed with the patient to document continued need for supplemental oxygen (O2). -Flow & directions: 2-3L/min ATC -Patient voices adherence to recommended usage: Yes -Symptom control on O2: Decreased dyspnea -Counseled patient not begin, restart, or continue [...] to the point of requiring O2. -Recommendations: Continue O2 ATC 4. C igarette nicotine dependence with nicotine-induced disorder Notes: 1ppd x 65 years, quit briefly in 2023 Discussed smoking cessation yet again and the importance of cessation not only including COPD and lung cancer risk, but also association with bladder cancer. He did not voice any intent to quit at this time. He does not meet current LDCT screening criteria due to age. 5. B ladder tumor Notes: Planned cystoscopy and bladder tumor removal. 6. O besity, class 1 Notes: Patient's weight is inducing a restrictive pulmonary physiology. Weight loss indicated: Decrease calories, increase activity. * Procedures: A lpha-1 Antitrypsin: Screening Date: 07/28/2023. Genotype: M M. Bess FT: Data: [place] [facility] [place]FEV1/FVC: 36% -FEV1: 45% -FVC: 89% -WVP26-43%: 19% -Bronchodilator response: None -RV: 100% -T% [...] tobacco use and urged to quit. 0 11/17/2024 Cessation counseling provided 0 11/17/2024 [facility] Above Normal BMI Follow-up D ietary management education, guidance, and counseling * * Sign off status: Completed Visit Status: C HK (Check Out) true * Provider: Surekha You DO Date: 0 11/17/2024 Generated for Surekha boggs/Babak/Jeffsmitting on: 0 11/20/2024 09:50 AM EDT History and Physical Notes * HPI (History of Present Illness) Category Sub-Category Detail Notes Category Not es General Patient present s for Pulmonary Clearance. Patient is being scheduled for a Cystoscopy/Bladder tumor removal with on 12/04/2024. Patient is currently on 3L O2 at home. DME:[facility]. Patient complains of SOB with exertion. Patient admits to smoking 5 cigarettes per day. Patient is using Stiolto [facility] along with his rescue inhaler. Patient reports benefit. Patient is under the care of [facility] Cardiology and scheduled for an appointment on 11/26/2024 with [facility]. Examination Category Sub-Category Detail Notes Category Not es Exam GENERAL APPEARANCE: Appears stated age Skin Normal Mouth [place] and moist. No c andidiasis Trachea Midline Chest Mild thoracic kyphos is Respiratory Normal Movements, Ef fort Normal Auscultation Diminished with diff use coarse breath sounds with expiratory wheezes Cardiac Irregularly irregula r Gastrointestinal Normal Vascular No edema Musculoskeletal Normal posture Neurological Focal, intact Psychiatric Alert and oriented x 3 Mentation/Cognition Normal Oropharynx Mallampati Class II
--- OUTSIDE RECORDS SUMMARY | 2024-11-20 09:50 | XMS_ITS | Encounter Summary ---
Author Organization [facility] Address [address] [place] [address] Phone Care Team Providers Care Business Intelligence Etl Developer Name Role Phone Bao Bartlett DO Primary Care Provider [phone] Encounter Details Date Type Department Care Team (Late st Contact Info) Description 05/01/2023 Scanned Document [facility] [address] [place] [place] [id number] Scanning, Generic Provider Social History Tobacco Use Types Packs/Day Years Used Date Smoking Tobacco: Never Assessed Sex and Gender Information Value Date Recorded Sex Assigned at Not on file Legal Sex Male 1:11 PM EST Gender Identity Not on file Sexual Orientation Not on file documented as of this encounter Plan of Treatment Not on file documented as of this encounter Visit Diagnoses Not on filedocumented in this encounter Care Teams Business Intelligence Etl Developer Relationship Specialty Start Date End Date Bao Bartlett DO [address] [facility] [place] [address] PCP - General 07/02/99 documented as of this encounter
--- OUTSIDE RECORDS SUMMARY | 2024-11-20 09:50 | XMS_ITS | Encounter Summary ---
Author Organization [facility] Address [address] [place] [address] Care Team Providers Care Cashier Clerk Name Role Phone Bao Bartlett Primary Care Provider [phone] Scotty Booth DO Unavailable [phone] Encounter Details Date Type Department Care Team (Late st Contact Info) Description 11/22/2022 Clinisync Result Encounter [facility] External Department Unsolicited Chi Nix, DO [address] [place] [address] Social History Tobacco Use Types Packs/Day Years Used Date Smoking Tobacco: Never Assessed Sex and Gender Information Value Date Recorded Sex Assigned at Not on file Legal Sex Male 6:44 PM EDT Gender Identity Not on file Sexual Orientation Not on file documented as of this encounter Plan of Treatment Not on file documented as of this encounter Procedures Procedure Name Priority Date/Time Associated Diagnosis Comments XR SHOULDER COMPLETE LEFT 11/22/2022 2:58 PM EDT documented in this encounter Results * XR SHOULDER COMPLETE LEFT (11/22/2022 2:58 PM EDT) Anatomical Region Laterality Modality Other 11/22/2022 2:58 PM EDT Narrative 11/27/2022 11:29 AM EDT Exam Date/Time: 11/22/2022 15:12 EDT Reason for Exam: Post Op Report IMPRESSION: Status post complete left shoulder replacement. EXAMINATION: XR Shoulder Complete Left, 11/22/2022 2:58 PM CLINICAL HISTORY: Post Op TECHNIQUE: AP x-ray COMPARISON: Shoulder x-rays from 08/17/2022 FINDINGS: Status post complete left shoulder replacement. The prostheses are in anatomic alignment. Expected postoperative soft tissue edema and subcutaneous air are noted. Ordering Provider: Chi Nix FINAL REPORT Dictated: 11/27/2022 11:26 am Camron Simpson MD, V. Signed (Electronic Signature): 11/27/2022 11:26 am Signed by: Camron Simpson MD, V. Transcribed by: SHWETA Technologist: DARIA Technical Comments Radiation Dose: Ka,r in mGy = na DAP = na Procedure Note Radiology, Radiologist, MD - 11/27/2022 Exam Date/Time: 11/22/2022 15:12 EDT Reason for Exam: Post Op Report IMPRESSION: Status post complete left shoulder replacement. EXAMINATION: XR Shoulder Complete Left, 11/22/2022 2:58 PM CLINICAL HISTORY: Post Op TECHNIQUE: AP x-ray COMPARISON: Shoulder x-rays from 08/17/2022 FINDINGS: Status post complete left shoulder replacement. The prostheses are inanatomic alignment. Expected postoperative soft tissue edema and subcutaneous airare noted. Ordering Provider: Chi Nix FINAL REPORT Dictated: 11/27/2022 11:26 am Camron Simpson MD, V. Signed (Electronic Signature): 11/27/2022 11:26 am Signed by: Camron Simpson MD, V. Transcribed by: SHWETA Technologist: DARIA Technical Comments Radiation Dose: Ka,r in mGy = na DAP = na Chi Nix DO [facility] Final Result documented in this encounter Visit Diagnoses Not on filedocumented in this encounter Care Teams Cashier Clerk Relationship Specialty Start Date End Date Bao Bartlett [address] [place] [address] PCP - General Family Medicine 12/06/22 Scotty Booth DO [address] [place] [address] Otolaryngology 11/16/23 documented as of this encounter
--- OUTSIDE RECORDS SUMMARY | 2024-11-20 09:50 | XMS_ITS | Clinical Summary ---
Author Organization [facility] Address [address] [place] [address] Phone Care Team Providers Care Unload Associate Name Role Phone Bao Bartlett DO Primary Care Provider [phone] Allergies No known active allergies Medications oxygen (O2) gas therapy USE DIRECTED Active albuterol (ProAir HFA) 90 mcg/actuation inhaler Inhale. Active cholecalciferol (Vitamin D-3) 50 MCG (2000 UT) tablet Take 1 tablet (2,000 Units) by mouth once daily. Active docusate sodium (Colace) 100 mg tablet Take 1 tablet (100 mg) by mouth 2 times a day. Active fluticasone-umec lidin-vilanter (TRELEGY-ELLIPTA ) 100-62.5-25 mcg blister with device Inhale. Active omeprazole (PriLOSEC) [address] capsule Take 1 capsule (40 mg) by mouth once daily. Active oxyCODONE-acetam inophen (Percocet) 5-325 mg tablet Take by mouth every 6 hours. Active rosuvastatin (Crestor) 40 mg tablet Take 1 tablet (40 mg) by mouth once daily. Active dilTIAZem ER (Tiazac) 240 mg 24 hr capsuleIndicatio ns:Aortic valve stenosis, etiology of cardiac valve disease unspecified,Hist ory of [place] (myocardial infarction) Take 1 capsule (240 mg) by mouth once daily. 90 capsule 3 3 Active Eliquis 5 mg tabletIndication s:Atrial fibrillation, unspecified type (Multi) TAKE 1 TABLET BY MOUTH TWICE A DAY 60 tablet 5 4 Active metoprolol tartrate (Lopressor) 50 mg tabletIndication s:Essential (primary) hypertension,Ath erosclerosis of coronary artery bypass graft of [place] heart without angina pectoris TAKE 1 TABLET EVERY 12 HOURS DAILY 180 tablet 4 Active dilTIAZem CD (Cardizem CD) 240 mg 24 hr capsuleIndicatio ns:Atrial fibrillation, unspecified type (Multi) TAKE 1 CAPSULE BY MOUTH EVERY DAY 90 capsule 3 4 Active Active Problems Problem Noted Date Diagnosed Date Aortic stenosis 04/20/2023 Atherosclerosis of coronary artery bypass graft of [place] heart without angina pectoris 04/20/2023 Bilateral carotid bruits 04/20/2023 Carotid artery stenosis 04/20/2023 Essential hypertension 04/20/2023 History of [place] (myocardial infarction) 04/20/2023 Hyperlipidemia 04/20/2023 Afib (Multi) 04/20/2023 COPD (chronic obstructive pulmonary disease) (Mu lti) 04/20/2023 Immunizations Immunization Administration Dates Next Due Influenza, seasonal, injectable 03/02/2020 Moderna SARS-CoV-2 Vaccination 08/25/2020 Pfizer Purple Cap SARS-CoV-2 05/16/2021 SARS-CoV-2, Unspecified 10/28/2021 Family History Medical History Relation Name Comments CVA Brother Transient ischemic attack Brother malignant neoplasm Brother Diabetes type I Mother cardiac disorder Mother Relation Name Status Comments Brother Father Mother Social History Tobacco Use Types Packs/Day Years Used Date Smoking Tobacco: Never Assessed Tobacco Cessation:Counseling Given: Not Answered Sex and Gender Information Value Date Recorded Sex Assigned at Not on file Legal Sex Male 1:11 PM EST Gender Identity Not on file Sexual Orientation Not on file Last Filed Vital Signs Vital Sign Reading Time Taken Comments Blood Pressure 124/60 07/14/2022 10:24 AM EST Pulse 66 07/14/2022 10:24 AM EST Temperature - - Respiratory Rate - - Oxygen Saturation - - Inhaled Oxygen Concentration - - Weight 99.3 kg (219 lb) 07/14/2022 10:24 AM EST Height 176.5 cm (5' 9.5 ) 07/14/2022 10:24 AM ES T Body Mass Index 31.88 07/14/2022 10:24 AM EST Plan of Treatment Health Maintenance Due Date Last Done Comments Lipid Panel 1945 Medicare Annual Wellness Vis it (AWV) 1945 Diabetes Screening 1963 Hepatitis C Screening 1963 Pneumococcal Vaccine (1 of 2 - PCV) 1964 DTaP/Tdap/Td Vaccines (1 - Tdap) 1967 Zoster Vaccines (1 of 2) 1995 RSV High Risk: (Elderly (60+ ) or Population) (1 - 1-dose 75+ series) 2020 COVID-19 Vaccine (4 - 2023-2 5 season) 2024 10/28/2021, 05/16/2021, 08/25/2020 Influenza Vaccine (Season Ended) 2025 03/02/2020 HIB Vaccines Aged Out No longer eligi ble based on patient's age to complete this topic HPV Vaccines Aged Out No longer eligi ble based on patient's age to complete this topic Hepatitis A Vaccines Aged Out No long er eligible based on patient's age to complete this topic Hepatitis B Vaccines Aged Out No long er eligible based on patient's age to complete this topic IPV Vaccines Aged Out No longer eligi ble based on patient's age to complete this topic Meningococcal Vaccine Aged Out No javan km eligible based on patient's age to complete this topic Rotavirus Vaccines Aged Out No longer eligible based on patient's age to complete this topic Insurance [employer] Care Teams Unload Associate Relationship Specialty Start Date End Date Bao Bartlett DO [address] [place] [address] PCP - General 07/02/99
--- OUTSIDE RECORDS SUMMARY | 2024-11-20 09:50 | XMS_ITS | Encounter Summary ---
Author Organization [facility] Address [address] [facility] [place] [address] Care Team Providers Care Transition Mgr Rn Name Role Phone Bao Bartlett Primary Care Provider [phone] Scotty Booth DO Unavailable [phone] Encounter Details Date Type Department Care Team (Late st Contact Info) Description 07/03/2023 External Result Encounter [facility] Department Unsolicited Scotty Booth, DO [address] [facility] [place] [address] Social History Tobacco Use Types Packs/Day Years Used Date Smoking Tobacco: Every Day Cigarettes Smokeless Tobacco: Never Alcohol Use Standard Drinks/Week Comments Never 0 (1 standard drink = 0.6 oz pure alcohol) caffeine intake: 3-4 cups pr day of coffee Sex and Gender Information Value Date Recorded Sex Assigned at Not on file Legal Sex Male 6:44 PM EDT Gender Identity Not on file Sexual Orientation Not on file documented as of this encounter Plan of Treatment Not on file documented as of this encounter Procedures Procedure Name Priority Date/Time Associated Diagnosis Comments ECG 12-LEAD 07/03/2023 2:45 PM EST documented in this encounter Results * ECG 12 lead (07/03/2023 2:45 PM EST) 07/03/2023 2:45 PM EST [facility] - 07/04/2023 11:39 AM EST [facility] Main [address] [address] Electrocardiograph Report Signed Patient: Franki Messina MR#: [id number] : 1945 Acct:[id number] Age/Sex: 78 / M ADM Date: 07/03/23 Loc: PS Room: Type: [facility] CLI Attending Dr: Scotty Booth DO Ordering Provider: Scotty Booth DO Date of Service: 07/03/2308/25/1430 ECG/ECG 12 lead ECG: for surgery 07/11/23 Copies to: Test Reason : Blood Pressure : / mmHG Vent. Rate : 070 BPM Atrial Rate : 070 BPM P-R Int : 156 ms QRS Dur : 094 ms QT Int : 426 ms P-R-T Axes : 071 071 062 degrees QTc Int : 460 ms Sinus rhythm with occasional premature ventricular complexes and Possible premature atrial complexes with aberrant conduction Otherwise normal ECG When compared with ECG of 20-FEB-2022 04:59, aberrant conduction is now present Nonspecific T wave abnormality no longer evident in Lateral leads Confirmed by LEN THOMAS [facility] ([id number]) on 07/04/2023 11:17:50 AM Referred By: LUTHER Electronically Signed By:ESTHER HARRINGTON MD [facility] Transcribed By: [facility] Signed By Victor Manuel Harrington MD 07/04/23 1117 Procedure Note Stan Harrington MD - 07/04/2023 [facility] [address] Electrocardiograph Report Signed Patient: Franki Messina SRMR#: [id number] : 5Acct:[id number] Age/Sex: 78 / MADM Date: 07/03/23 Loc: PS Room:Type: [facility]P CLI Attending Dr: Scotty Booth DO Ordering Provider: Scotty Booth DO Date of Service: 07/03/2308/25/1430 ECG/ECG 12 lead ECG: for surgery 07/11/23 Copies to: Test Reason : Blood Pressure : / mmHG Vent. Rate : 070 BPM Atrial Rate : 070 BPM P-R Int : 156 ms QRS Dur : 094 ms QT Int : 426 ms P-R-T Axes : 071 071 062 degrees QTc Int : 460 ms Sinus rhythm with occasional premature ventricular complexes and Possiblepremature atrial complexes with aberrant conduction Otherwise normal ECG When compared with ECG of 20-FEB-2022 04:59, aberrant conduction is now present Nonspecific T wave abnormality no longer evident in Lateral leads Confirmed by ESTHER HARRINGTON MD, FACC ([id number]) on 07/04/2023 11:17:50 AM Referred By: LUTHER Electronically Signed By:CADY THOMAS FACC Transcribed By: LAZARO Signed By Victor Manuel Harrington MD 07/04/23 1117 us Scotty Booth DO ECG ORDERABLES Final Resul t [facility] [address] [place] [address], documented in this encounter Visit Diagnoses Not on filedocumented in this encounter Care Teams Transition Mgr Rn Relationship Specialty Start Date End Date Bao Bartlett [address] [place] [address] PCP - General Family Medicine 12/06/22 Scotty Booth DO [address] [place] [address] Otolaryngology 11/16/23 documented as of this encounter
--- OUTSIDE RECORDS SUMMARY | 2024-11-20 09:50 | XMS_ITS | Encounter Summary ---
Author Organization [facility] Address [address] [facility] [place] [address] Care Team Providers Care Hydroponics Worker Name Role Phone Bao Bartlett Primary Care Provider [phone] Scotty Booth DO Unavailable [phone] Encounter Details Date Type Department Care Team (Late st Contact Info) Description 11/22/2022 Abstract [facility] [address] [place] [phone] Cih Nix DO [address] [place] [address] Social History Tobacco Use Types Packs/Day Years [...] on filedocumented in this encounter Care Teams Hydroponics Worker Relationship Specialty Start Date End Date Bao Bartlett [address] [place] [address] PCP - General Family Medicine 12/06/22 Scotty Booth DO [address] [place] [address] Otolaryngology 11/16/23 documented as of this encounter
--- OUTSIDE RECORDS SUMMARY | 2024-11-20 09:50 | XMS_ITS | Referral Summary ---
Author Organization [facility] Address [address] [place] [address] Care Team Providers Care Embossing Machine Tender Name Role Phone Bao Bartlett DO Primary Care Provider [phone] Encounters Date Type Department Care Team Description 09/08/2024 10:00 AM EDT Office Visit [facility] [address] [place] [phone] Chandni Jauregui MD Coronary artery disease involving [place] coronary artery of [place] heart without angina pectoris (Primary Dx); Hypertension, unspecified type; Paroxysmal atrial fibrillation (CMS/HCC) from Last 3 Months Allergies No known active allergies Medications Medication Sig Dispensed Refills Start Date End Date Status dilTIAZem CD (Cardizem CD) 240 mg 24 hr capsule Take 240 mg by mouth in the morning. 04/23/2023 Active rosuvastatin (Crestor) 40 mg tablet Take 40 mg by mouth in the morning. Active oxyCODONE-acetaminop hen (Percocet) 5-325 mg tablet Take 1 tablet by mouth every 4 (four) hours if needed. Active tamsulosin (Flomax) 0.4 mg 24 hr capsule TAKE 2 CAPSULE BY MOUTH EVERY DAY IN THE EVENING FOR PROSTATE 08/31/2023 Active albuterol sulfate 90 mcg/actuation aero powdr breath act w/sensor Inhale 1 puff every 4 (four) hours if needed. Active tiotropium-olodatero L (Stiolto Respimat) 2.5-2.5 mcg/actuation mist inhaler INHALE TWO PUFFS BY MOUTH EVERY DAY 01/11/2023 Active aspirin 81 mg EC tablet Take 1 tablet by mouth in the morning. 09/21/2023 Active furosemide (Lasix) 20 mg tablet Take 20 mg by mouth if needed. 07/03/2023 Active metFORMIN (Glucophage) 500 mg tablet Take 250 mg by mouth with breakfast and with evening meal. 09/21/2023 Active metoprolol tartrate (Lopressor) 50 mg tabletIndications:Es sential hypertension Take 1 tablet (50 mg) by mouth every 12 (twelve) hours. 180 tablet 3 01/16/2024 Active apixaban (Eliquis) 5 mg tabletIndications:Pa roxysmal atrial fibrillation (CMS/HCC) Take 1 tablet (5 mg) by mouth two times daily. 180 tablet 3 09/02/2024 Active fluticasone-umeclidi n-vilanter (Trelegy Ellipta) 200-62.5-25 mcg blister with device 1 puff 1 (one) time each day at the same time. Active Active Problems Problem Noted Date Diagnosed Date Centrilobular emphysema 09/08/2024 halfway (current) use of anticoagulants 2024 Nicotine dependence, cigaret olvin, with unspecified nicotine-induced disorders 09/08/2024 Other secondary pulmonary hypertension Hemorrhoids 03/07/2024 Rectal bleeding 03/07/2024 Acute urinary retention 12/07/2023 Atrial fibrillation with rapid ventricular respo nse 12/07/2023 IVIS (acute kidney injury) 12/07/2023 Back pain 12/07/2023 Bilateral edema of lower extremity 12/07/2023 Chronic respiratory failure with hypoxia 024 Colon polyps 12/07/2023 Dyslipidemia 12/07/2023 GI bleed 12/07/2023 Hematuria 12/07/2023 Peripheral vascular disease 12/07/2023 Postoperative pain 12/07/2023 SBO (small bowel obstruction) 12/07/2023 Tobacco abuse 12/07/2023 Encounter for immunization 06/22/2023 Chronic low back pain 05/30/2023 Hard of hearing 05/30/2023 History of colonic polyps 05/30/2023 Overview (12/07/2023): Jan 14, 2020 Entered By: CHERI NIÑO Comment: [facility] - REPEAT APR 2021 Jan 14, 2020 Entered By: CHERI NIÑO Comment: [facility] - REPEAT APR 2021 Osteoarthritis of left glenohumeral joint 2022 Aortic stenosis 04/20/2023 Atherosclerosis of coronary artery bypass graft of [place] heart without angina pectoris 04/20/2023 Bilateral carotid bruits 04/20/2023 Carotid artery stenosis 04/20/2023 History of [place] (myocardial infarction) 04/20/2023 Hyperlipidemia 04/20/2023 Essential hypertension 02/22/2022 Severe chronic obstructive pulmonary disease Acquired spondylolisthesis 11/05/2018 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 gion 11/05/2018 Social History Tobacco Use Types Packs/Day Years Used Date Smoking Tobacco: Every Day Cigarettes 0.3 60 Tobacco Cessation:Ready to Q uit: Not Asked; Counseling Given: Not Answered Alcohol Use Standard Drinks/Week Comments Never 0 (1 standard drink = 0.6 oz pur e alcohol) [place] Safety & Environment Answer Date Rec orded Fear of Current or Ex-Partner Not on file Emotionally Abused Not on file 09/04/2023 Physically Abused Not on file 09/04/2023 Sexually Abused Not on file 09/04/2023 Physically or Sexually Abused Not on file Sex and Gender Information Value Date Recorded Sex Assigned at Not on file Gender Identity Not on file Sexual Orientation Not on file Last Filed Vital Signs Vital Sign Reading Time Taken Comments Blood Pressure 126/70 09/08/2024 10:35 AM EDT Pulse 75 09/08/2024 10:35 AM EDT Temperature - - Respiratory Rate 16 09/14/2023 9:47 AM EDT Oxygen Saturation 96% 09/08/2024 10:35 AM EDT on 3L O2 Inhaled Oxygen Concentration - - Weight 100 kg (221 lb) 09/08/2024 10:35 AM EDT Height 175.3 cm (5' 9 ) 09/08/2024 10:35 AM EDT Body Mass Index 32.64 09/08/2024 10:35 AM EDT Plan of Treatment Upcoming Encounters Date Type Department Care Team (Late st Contact Info) Description 11/26/2024 10:20 AM EDT Office Visit [facility] [address] [place] [address] Gordo Chaidez, RETORT FURNACE OPERATOR [address] [place] [address] Care Teams Embossing Machine Tender Relationship Specialty Start Date End Date Bao Bartlett DO [address] [place] [id number] PCP - General 12/07/23
--- OUTSIDE RECORDS SUMMARY | 2024-11-20 09:50 | XMS_ITS | Patient Health Record ---
Author Organization [facility] [place] Address [address] [place] [address] Care Team Providers Care Pepper Cutter Name Role Phone Cesar Bartlett DOrin Primary Care Provider Unavail able Pato You Unavailable [phone] Allergies No Known Allergies Results Component Value Reference Range Notes [id number] SCREENIN G SWAB Reviewed date:06/09/2024 08:58:02 AM Interpretation: Performing Lab: Notes/Report: XR Chest PA and Lateral (Rou scarlet CXR) * Reviewed date:06/16/2024 09:35:33 AM Interpretation: Performing Lab: Notes/Report: Reason For Referral No Information Medications Medication SIG (Take, Route, Frequency, Duration) Notes Start Date End Date Status Eliquis 5 MG TAKE 1 TABLET BY DAVINA TH TWICE A DAY Oral for 30 Days Active Aspirin 81 81 MG 1 tablet Orally Once a day Active dilTIAZem HCl ER Coated Beads 240 MG TAKE 1 CAPSULE BY MOUTH EVERY DAY Oral for 90 Days Activ e Metoprolol Tartrate 50 MG Oral for 90 Days Active Stiolto Respimat 2.5-2.5 MCG/ACT 2 puffs Inhalation Once a day Active Furosemide 20 MG TAKE 1 TABLET BY DAVINA TH EACH MORNING FOR LEG SWELLING Oral for 90 Days Active metFORMIN HCl 500 MG 1 tablet with a nicole l Orally Once a day for 30 day(s) 05/28/2024 Active Albuterol Sulfate HFA 108 (90 Base) MCG/ACT 2 puffs as needed Inhalation every 4 hrs Active Immunizations Vaccine Route Administration Date Status Comme nts Flu, Fluad (77866) 65 yrs + High Dose Seasonal () Unknown 04/28/2024 Administered Spikevax Moderna Syringe Pre -Filled 50 mcg/0.5 mL Unknown 04/28/2024 Administered Social History Tobacco Use: Social History Observation [...] Problem Status W/U Status Risk Notes Problem Centrilobular emphysema (36851345) Centrilobular emphysema (J43.2) Active confirmed Problem Chronic respiratory failure (14852041) Chronic respiratory failure with hypoxia (J96.11) Active confirmed Problem Coronary artery disease (64504895) CAD (coronary artery disease) (I25.10) Active confirmed Problem 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) Active confirmed Problem Atrial fibrillation (61514448) Atrial fibrillation, unspecified (I48.91) Active confirmed Problem Neoplasm of bladder (926116384) Bladder tumor (D49.4) Active confirmed Problem Secondary pulmonary hypertension (08531779) Other secondary pulmonary hypertension (I27.29) Active confirmed Vital Signs Heart Rate 75 /min 11/17/2024 Temperature 96.7 degrees Fahrenheit 11/17/2024 Respiratory Rate 20 /min 11/17/2024 Oximetry 91 % 11/17/2024 Blood pressure diastolic 75 mm Hg 11/17/2024 Height 69.3 in 11/17/2024 Blood pressure systolic 127 mm Hg 11/17/2024 Weight 220.4 lbs 11/17/2024 BMI 32.26 kg/m2 11/17/2024 Procedures Procedure Date Ordered Date Performed Result Body Sit e Inhaler Teaching/Aerosol-performed 05/28/2024 05/27/2024 N /A Encounters Encounter Location Date Provider Diagnosis [facility] [address] [place] [address] 06/10/2024 [facility] [place] [address] [place] [address] 06/23/2024 [facility] [place] [address] [place] [address] 11/12/2024 [facility] [place] [address] [place] [address] 11/17/2024 [facility] Encounter for preprocedural respiratory examination Z01.811 ; Centrilobular emphysema J43.2 ; Chronic respiratory failure with hypoxia J96.11 ; Cigarette nicotine dependence with nicotine-induced disorder F17.219 ; Bladder tumor D49.4 and Obesity, class 1 E66.811 [facility] [address] [place] [address] 07/16/2024 [facility] Centrilobular emphys [place] J43.2 ; Chronic respiratory failure with hypoxia J96.11 ; Cigarette nicotine dependence with nicotine-induced disorder F17.219 ; Other secondary pulmonary hypertension I27.29 ; CAD (coronary artery disease) I25.10 ; Atrial fibrillation, unspecified I48.91 and Obesity, class 1 E66.811 [facility] [address] [place] [address] 05/28/2024 [facility] Centrilobular emphys [place] J43.2 ; Chronic respiratory failure with hypoxia J96.11 ; Other secondary pulmonary hypertension I27.29 ; CAD (coronary artery disease) I25.10 ; Atrial fibrillation, unspecified I48.91 and History of tobacco abuse Z87.891 Assessments Encounter Date Diagnosis (ICD Code) Assessment Notes Treatment Notes Treatment Clinical Notes Section Notes 05/28/2024 Centrilobular emphysema (ICD-10 - J43.2) Patient has severe COPD based on PFT from 10/19/2022, emphysematous findings based on neck CT, and remains symptomatic despite Stiolto.Stiolto definitely helps, but he remains quite short of breath with exertion requiring albuterol at least 3-4 times a day. He stopped smoking several months ago which I stated is the best thing he could have done for himself. Regarding symptom control, the neck step would be adding an ICS on top of the LAMA/LABA (currently Stiolto). Explained the patient that this can be accomplished with a single inhaler: Trelegy or Breztri. I reviewed the Ellipta device with the patient and explained Trelegy is 1 puff once daily. He is already familiar with the HFA with his albuterol and I stated that Breztri would be used 2 puffs twice daily. The patient voiced he would prefer to try the Trelegy. I instructed him on the appropriate use of the Ellipta device. I demonstrated how to inhale with it. He was instructed to rinse after use due to the addition of the ICS. Samples were provided. I discussed pulmonary rehabilitation with the patient. He would need a new PFT as his prior PFT is over 18 months old.He declined pulmonary rehab at this time. As repeating PFT would not provide any new information to change my plan of care, I do not feel repeating a PFT is required for now. His RV and TLC are not bad enough to consider endobronchial valves. He was counseled to remain off cigarettes. He has had no direct imaging of his chest and at least a year and a half. I recommended a chest x-ray to evaluate for any gross findings. He has a strong family history of COPD and smokers. Will check for alpha-1 antitrypsin (AAT) deficiency. Pamphlet discussing AAT causes, testing, and potential treatment was provided to the patient. Appropriate follow-up is dependent on identified genotype. Patient will follow-up in 4 weeks to review his response to Trelegy as well as the AAT result and chest x-ray findings. 05/28/2024 Chronic respiratory failure with hypoxia (ICD-10 - J96.11) Efti-do-yzzo encounter performed with the patient to document continued need for supplemental oxygen (O2). -Flow & directions: 2-3L/min ATC -Patient voices adherence to recommended usage: With activity and HS, but leaves it off at rest -Symptom control on O2: Decreased dyspnea -Counseled [...] to the point of requiring O2. -Recommendations: Patient has a severe diffusion impairment with DLCO 48% based on last PFT. Explained to him that this is likely a combination of his cardiovascular and pulmonary disease. He may be on O2 lifelong at this point. If she is able to get by at rest on room air and not symptomatic, he can leave it off for periods of time. Explained to him that when he is active, that is when he will desaturate the most. He voices that he wears it during these times. Continue O2 as directed. 07/16/2024 Centrilobular emphysema (ICD-10 - J43.2) Prior [...] respiratory failure with hypoxia (ICD-10 - J96.11) Eomt-id-gtxr encounter performed with the patient to document [...] 4L/min to maintain SpO2 88% or greater. 11/17/2024 Encounter for preprocedural respiratory examination (ICD-10 [...] respiratory failure with hypoxia (ICD-10 - J96.11) Fjyv-sa-tvap encounter performed with the patient to document [...] of requiring O2. -Recommendations: Continue O2 ATC 07/16/2024 Cigarette nicotine dependence with nicotine-induced disorder [...] current LDCT screening criteria due to age. 05/28/2024 Other secondary pulmonary hypertension (ICD-10 - I27.29) Echo 09/21/2023 noted RVSP 41mmHg. This is mild elevation, likely due to a combination of emphysema (group 3) and cardiovascular disease such as CAD (group 2). 05/28/2024 CAD (coronary artery disease) (ICD-10 - I25.10) F/U with [facility]. 07/16/2024 Other secondary pulmonary hypertension (ICD-10 - I27.29) Echo 09/21/2023 noted RVSP 41mmHg. This is mild elevation, likely due to a combination of emphysema (group 3) and cardiovascular disease such as CAD (group 2). 11/17/2024 Cigarette nicotine dependence with nicotine-induced disorder [...] D49.4) Planned cystoscopy and bladder tumor removal. 07/16/2024 CAD (coronary artery disease) (ICD-10 - I25.10) F/U with [facility]. 05/28/2024 Atrial fibrillation, unspecified (ICD-10 - I48.91) F/U with [facility]. 05/28/2024 History of tobacco abuse (ICD-10 - Z87.891) 1ppd x 65 years, quit 2023. Patient was lauded for stopping smoking. He is counseled not to restart given his severe pulmonary and cardiovascular disease. He is age 79, and due to that, does not meet the current LDCT screening criteria that is typically covered. 07/16/2024 Atrial fibrillation, unspecified (ICD-10 - I48.91) F/U with [facility]. 11/17/2024 Obesity, class 1 (ICD-10 - E66.811) Patient's weight is inducing a restrictive pulmonary physiology. Weight loss indicated: Decrease calories, increase activity. 07/16/2024 Obesity, class 1 (ICD-10 - E66.811) Patient's weight is inducing a restrictive pulmonary physiology. Weight loss indicated: Decrease calories, increase activity. 07/16/2024 Other 11/17/2024 Other Plan Of Treatment Next Appt Details Provider Name:Pato You, 01/20/2025 10:30:00 AM, [address] [place], [address], Insurance Providers Payer Name Payer Address Payer Phone Subscriber Number Group Number Insured Name Patient Relationship to Insured Coverage Start Date Coverage End Date [facility] [employer] [address] [address] [place] [address] [phone] [id number] Franki Messina Self - patient is the insured Medical (General) History Medical History History ICD Code Centrilobular emphysema J43.2 Chronic respiratory failure with hypoxia J96.11 CAD (coronary artery disease) I25.10 HTN (hypertension) I10 Atrial fibrillation, unspecified I48.91 MR (mitral regurgitation) I34.0 AI (aortic insufficiency) I35.1 PVD (peripheral vascular disease) I73.9 Other secondary pulmonary hypertension I 27.29 Cigarette nicotine dependence with nicot ine-induced disorder F17.219 Bladder tumor D49.4 Surgical History Surgery Date(Month/Year) shoulder replacement-left hernia repair coronary artery bypass graft tonsillectomy shoulder arthroscopy-right cervical fusion/laminectomy carpal tunnel release-bilateral vascular bypass
--- OUTSIDE RECORDS SUMMARY | 2024-11-20 09:50 | XMS_ITS | Clinical Summary ---
Author Organization [facility] Address [address] [place] [address] Care Team Providers Care Soybean Specialties Cook Name Role Phone KrzysztofBao nevarez Primary Care Provider [phone] Scotty Booth DO Unavailable [phone] Allergies No known active allergies Medications ROSUVASTATIN CALCIUM PO Take 40 mg by mouth. 3 Active albuterol (ProAir Digihaler) 90 mcg/act breath-activate d inhaler (w/ sensor) Inhale 1 puff every 4 (four) hours if needed. Active Eliquis 5 MG tablet Take 5 mg by mouth in the morning and 5 mg before bedtime. 3 Active metoprolol tartrate (Lopressor) 50 MG tablet Take 50 mg by mouth every 12 (twelve) hours. 3 Active tamsulosin (Flomax) 0.4 MG 24 hr capsule Take 0.4 mg by mouth in the morning. Active oxyCODONE-aceta minophen (Percocet) 5-325 MG tablet Take 1 tablet by mouth every 4 (four) hours if needed for severe pain. Active furosemide (Lasix) 20 MG tablet TAKE 1 TABLET BY MOUTH EACH MORNING FOR LEG SWELLING 3 Active lisinopril 5 MG tablet Orally Active omeprazole (PriLOSEC) [address] capsule Take 40 mg by mouth in the morning. 2 Active potassium chloride CR (K-Tab) 20 MEQ ER tablet TAKE 1 TABLET DAILY EACH MORNING FOR POTASSIUM 3 Active cholecalciferol (Vitamin D-3) 50 MCG (1999 UT) tablet Take 2,000 Units by mouth in the morning. Active Fluticasone-Ume clidin-Vilant 100-62.5-25 MCG/ACT aerosol powder Inhale. Active tiotropium-olod aterol (Stiolto Respimat) 2.5-2.5 MCG/ACT aerosol solution inhaler INHALE TWO PUFFS BY MOUTH EVERY DAY 3 Active dilTIAZem CD (Cardizem CD) 240 MG 24 hr capsule 4 Active cephalexin (Keflex) 500 MG capsule Q8H 4 Active HYDROcodone-joseph taminophen (Chelan) 5-325 MG tablet 1 tablet 4 Active metFORMIN (Glucophage) 500 MG tablet 250 mg 4 Active acetaminophen (Tylenol) 500 MG tablet Every 6 hours 4 Active Active Problems Problem Noted Date Diagnosed Date Encounter for immunization 06/22/2023 Chronic low back pain 05/30/2023 Hard of hearing 05/30/2023 History of colonic polyps 05/30/2023 Overview (05/30/2023): Jan 14, 2020 Entered By: CHERI NIÑO Comment: [facility] GI - REPEAT APR 2021 Osteoarthritis of left glenohumeral joint 2022 Other intervertebral disc degeneration, lumbar r egion 05/30/2023 Spondylolisthesis of lumbar region 05/30/2023 Tobacco use disorder 05/30/2023 Afib 04/20/2023 Aortic stenosis 04/20/2023 Bilateral carotid bruits 04/20/2023 Carotid artery stenosis 04/20/2023 Atherosclerosis of coronary artery bypass graft of [place] heart without angina pectoris 04/20/2023 History of [place] (myocardial infarction) 04/20/2023 Hyperlipidemia 04/20/2023 COPD (chronic obstructive pulmonary disease) Essential hypertension 02/22/2022 Degeneration of lumbar intervertebral disc 11/05 Acquired spondylolisthesis 11/05/2018 Resolved Problems Problem Noted Date Diagnosed Date Resolved Date Acute urinary retention 08/10/2023 02/0 03/2024 IVIS (acute kidney injury) 08/10/2023 Back pain 08/10/2023 08/10/2023 Bilateral edema of lower extremity 08/10/2023 08/10/2023 Chronic respiratory failure with hypoxia 08/10/2023 08/10/2023 Colon polyps 08/10/2023 08/10/2023 Dyslipidemia 08/10/2023 08/10/2023 GI bleed 08/10/2023 08/10/2023 Hematuria 08/10/2023 08/10/2023 Peripheral vascular disease 08/10/2023 08/10/2023 Postoperative pain 08/10/2023 SBO (small bowel obstruction) 08/10/2023 08/10/2023 Atrial fibrillation with rap id ventricular response 08/10/2023 08/10/2023 Immunizations Immunization Administration Dates Next Due Influenza Whole 05/26/2003 Influenza, High Dose Seasona l, Preservative Free 04/24/2017,04/03/2016,05/10/2015 Influenza, High-dose Seasona l, Quadrivalent, Preservative Free 03/15/2023,03/20/2020 Influenza, Seasonal, Quadriv alent, Adjuvanted 04/24/2022,04/01/2021 Influenza, Unspecified 05/10/2015,2013,03/12/2013,06/04,07/20/2011,05/16/2010,03/31/2009 ,04/20/2008,05/14/2002 Influenza, seasonal, injectable 03/02/2020,04/01 Influenza, trivalent, adjuvanted 04/03/2019,08/2017 Novel [id number], all formulations 07/15/2009 Pfizer Tavarez Cap SARS-CoV-2 Vaccination Pfizer Purple Cap SARS-CoV-2 Vaccination 10/28/2021 Pneumococcal Conjugate PCV 13 07/06/2017 Pneumococcal Polysaccharide PPSV23 07/17/2018 Pneumococcal, Unspecified 07/15/2009 SARS-CoV-2, Unspecified 10/28/2021 Tdap 01/15/2019 Zoster, Recombinant 07/16/2019,01/15/2019 Family History Medical History Relation Name Comments Accidental Father hit by car Heart disease Mother Diabetes Sister Relation Name Status Comments Father Mother Sister Social History Tobacco Use Types Packs/Day Years Used Date Smoking Tobacco: Every Day Cigarettes Smokeless Tobacco: Never Tobacco Cessation:Ready to Q uit: Not Asked; [...] Sign Reading Time Taken Comments Blood Pressure 120/78 03/03/2022 12:00 PM EDT Pulse - - Temperature 36.2 C (97.1 F) 11/12/2023 10:03 AM EDT Respiratory Rate - - Oxygen Saturation - - Inhaled Oxygen Concentration - - Weight 104 kg (230 lb) 12/20/2023 9:48 AM EDT Height 175.3 cm (5' 9 ) 12/20/2023 9:48 AM EDT Body Mass Index 33.97 12/20/2023 9:48 AM EDT Plan of Treatment Health Maintenance Due Date Last Done Comments Pneumococcal Vaccine: 65+ Years Completed , 07/06/2017, 07/15/2009 Influenza Vaccine Completed 04/28/2024, , 04/24/2022, Additional history exists Insurance [employer] Care Teams Soybean Specialties Cook Relationship Specialty Start Date End Date Bao Bartlett [address] [place] [address] PCP - General Family Medicine 12/06/22 Scotty Booth DO [address] [place] [address] Otolaryngology 11/16/23
--- OUTSIDE RECORDS SUMMARY | 2024-11-20 09:50 | XMS_ITS | Clinical Summary ---
Author Organization [facility] Address [address] [place] [address] Care Team Providers Care Game Programer Name Role Phone Bao Bartlett DO Primary Care Provider [phone] Allergies No known active allergies Medications Medication [...] Noted Date Diagnosed Date Centrilobular emphysema 09/08/2024 FPC (current) use of anticoagulants 2024 Nicotine dependence, [...] 14, 2020 Entered By: CHERI NIÑO Comment: [facility] GI - REPEAT APR 2021 Jan 14, 2020 Entered By: CHERI NIÑO Comment: [facility] GI - REPEAT APR 2021 Osteoarthritis of left glenohumeral joint 2022 Aortic stenosis 04/20/2023 Atherosclerosis of coronary artery bypass graft of [place] heart without angina pectoris 04/20/2023 Bilateral carotid bruits 04/20/2023 Carotid artery stenosis 04/20/2023 History of [place] (myocardial infarction) 04/20/2023 Hyperlipidemia 04/20/2023 Essential hypertension 02/22/2022 Severe chronic obstructive pulmonary disease Acquired spondylolisthesis 11/05/2018 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 gion 11/05/2018 Encounters Date Type Department Care Team Description 09/08/2024 10:00 AM EDT Office Visit [facility] [address] [place] [address] Chandni Jauregui MD Coronary artery disease involving [place] coronary artery of [place] heart without angina pectoris (Primary Dx); Hypertension, unspecified type; Paroxysmal atrial fibrillation (CMS/HCC) from Last 3 Months Family History Medical History Relation Name Comments Heart disease Brother Heart disease Mother Relation Name Status Comments Brother Mother Social History Tobacco Use Types Packs/Day [...] Description 11/26/2024 10:20 AM EDT Office Visit [facility] [address] [place] [address] Gordo Chaidez, AWARD MACHINE OPERATOR [address] [place] [address] Health Maintenance Due Date Last Done Comments Medicare Annual Wellness (AWV) 1945 Depression Screening 1957 Fall Risk Screening 2010 COVID-19 Vaccine ( season) 2024 04/28/2024, 04/25/2023, 08/28/2022, Additional history exists Adult Tetanus 01/15/2029 01/15/2019 Pneumococcal Vaccine: 65+ Years Completed 07/17/2018, 07/06/2017, 07/15/2009 Zoster Vaccines Completed 07/16/2019, 01/15/2019 Influenza Vaccine Completed 04/28/2024, , 04/24/2022, Additional history exists HIB Vaccines Aged Out No longer eligi ble based on patient's age to complete this topic HPV Vaccines Aged Out No longer eligi ble based on patient's age to complete this topic IPV Vaccines Aged Out No longer eligi ble based on patient's age to complete this topic Meningococcal B Vaccine Aged Out No l onger eligible based on patient's age to complete this topic Meningococcal Vaccine Aged Out No javan km eligible based on patient's age to complete this topic Rotavirus Vaccines Aged Out No longer eligible based on patient's age to complete this topic Care Teams Game Programer Relationship Specialty Start Date End Date Bao Bartlett DO [address] [place] [address] PCP - General 12/07/23
--- OUTSIDE RECORDS SUMMARY | 2024-11-20 09:51 | XMS_ITS | Encounter Summary ---
Author Organization [facility] Address [address] [place] [address] Phone Care Team Providers Care Collection Clerk Name Role Phone Bao Bartlett DO Primary Care Provider [phone] Encounter Details Date Type Department Care Team (Late st Contact Info) Description 02/22/2022 Orders Only [facility] [address] [place] [address] Conversion, Onbase Social History Tobacco Use Types Packs/Day Years Used Date Smoking Tobacco: Never Assessed Sex and Gender Information Value Date Recorded Sex Assigned at Not on file Legal Sex Male 1:11 PM EST Gender Identity Not on file Sexual Orientation Not on file documented as of this encounter Plan of Treatment Scheduled Orders Name Type Priority Associated Diagnoses Orde r Schedule OUTSIDE LAB SCAN Lab Ordered: 02/22/2022 documented as of this encounter Visit Diagnoses Not on filedocumented in this encounter Care Teams Collection Clerk Relationship Specialty Start Date End Date Bao Bartlett DO [address] [facility] [place] [address] PCP - General 07/02/99 documented as of this encounter
--- OUTSIDE RECORDS SUMMARY | 2024-11-20 09:51 | XMS_ITS | Encounter Summary ---
Author Organization [facility] Address [address] [place] [address] Phone Care Team Providers Care Chemical Process Operator Name Role Phone Bao Bartlett DO Primary Care Provider [phone] Encounter Details Date Type Department Care Team (Late st Contact Info) Description 02/12/2022 Orders Only [facility] [address] [place] [address] Conversion, Onbase Social History Tobacco Use Types [...] r Schedule OUTSIDE LAB SCAN Lab Ordered: 02/12/2022 documented as of this encounter Visit Diagnoses Not on filedocumented in this encounter Care Teams Chemical Process Operator Relationship Specialty Start Date End Date Bao Bartlett DO [address] [facility] [place] [address] PCP - General 07/02/99 documented as of this encounter
--- OUTSIDE RECORDS SUMMARY | 2024-11-20 09:51 | XMS_ITS | Encounter Summary ---
Author Organization [facility] Address [address] [place] [address] Phone Care Team Providers Care Director Child Abuse Therapy Name Role Phone Bao Bartlett DO Primary Care Provider [phone] Encounter Details Date Type Department Care Team (Late st Contact Info) Description 10/23/2022 Orders Only [facility] [address] [place] [address] Conversion, Onbase Social History Tobacco Use Types [...] r Schedule OUTSIDE LAB SCAN Lab Ordered: 10/23/2022 documented as of this encounter Visit Diagnoses Not on filedocumented in this encounter Care Teams Director Child Abuse Therapy Relationship Specialty Start Date End Date Bao Bartlett DO [address] [facility] [place] [address] PCP - General 07/02/99 documented as of this encounter
--- OUTSIDE RECORDS SUMMARY | 2024-11-20 09:51 | XMS_ITS | Encounter Summary ---
Author Organization [facility] Address [address] [place] [address] Phone Care Team Providers Care Hockey Scout Name Role Phone Bao Bartlett DO Primary Care Provider [phone] Encounter Details Date Type Department Care Team (Late st Contact Info) Description 06/22/2020 Orders Only [facility] [address] [place] [address] Conversion, Onbase Social History Tobacco Use Types [...] r Schedule OUTSIDE LAB SCAN Lab Ordered: 06/22/2020 documented as of this encounter Visit Diagnoses Not on filedocumented in this encounter Care Teams Hockey Scout Relationship Specialty Start Date End Date Bao Bartlett DO [address] [facility] [place] [address] PCP - General 07/02/99 documented as of this encounter
--- OUTSIDE RECORDS SUMMARY | 2024-11-20 09:51 | XMS_ITS | Encounter Summary ---
Author Organization [facility] Address [address] [facility] [place] [address] Care Team Providers Care Crm Analyst Name Role Phone Bao Bartlett Primary Care Provider [phone] Scotty Booth DO Unavailable [phone] Encounter Details Date Type Department Care Team (Late st Contact Info) Description 08/10/2023 Abstract [facility] [address] [place] [phone] Jennifer Khan MA Social History Tobacco Use Types Packs/Day Years [...] on filedocumented in this encounter Care Teams Crm Analyst Relationship Specialty Start Date End Date KrzysztofCesar nevarezlaury [employer] [address] [place] [address] PCP - General Family Medicine 12/06/22 Scotty Booth DO [address] [place] [address] Otolaryngology 11/16/23 documented as of this encounter
--- NOTE | 2024-11-20 09:58 | XR_ITS ---
The [address] [address] Patient Name: QUINTEN KANG MRN: [id number] date: 1945 Sex: M Assigned Patient Location: [facility] Current Patient Location: [facility] Accession/Order Number: [id number] Exam Date: 11/20/2024 11:32 Report Date: 11/20/2024 11:38 At the request of: ESTHER SORENSON MD Procedure: XR chest 2V PA AND LATERAL CHEST: CLINICAL HISTORY: Preoperative clearance COMPARISON: 06/12/2024 Assessment is slightly limited by technique on the frontal view. Lungs are hyperinflated. Interstitial changes are again noted. There is no developing consolidation, effusion or pneumothorax. The cardiac, hilar and mediastinal silhouettes are within normal limits. There is no vascular congestion. The visualized bony thorax is intact. Mild degenerative changes seen at the spine. There is a left shoulder prosthesis and a lower cervical fusion plate. XR/XR chest 2V IMPRESSION: OBSTRUCTIVE LUNG DISEASE WITH CHRONIC APPEARING CHANGE. NO ACUTE FINDINGS. Impression dictated by: Kary Ibrahim M.D. 11/20/2024 11:38 AM Dictation Location: [place] [address] Electronically authenticated by: [id number] Y Date: 11/20/2024 11:38
--- NOTE | 2024-11-20 09:58 | ECG_ITS ---
The Test Date: 2024-11-20 Pat Name: QUINTEN KANG Department: Room: - Gender: Male Instructional Aide: : 1945 Requested By: ESTHER SORENSON Order Number: [id number] Reading MD: JOLIE MICHEL Measurements Intervals [place] Rate: 65 P: SD: QRS: 63 QRSD: 98 T: 53 QT: 405 QTc: 422 Interpretive Statements ATRIAL FIBRILLATION ABNORMAL RHYTHM ECG No previous ECG available for comparison Electronically Signed On 11-20-2024 15:44:25 EDT by JOLIE MICHEL
[2024-11-20 11:09] LABS: Basophils Absolute Auto 0.1 10^3/uL (0.0-0.1); Basophils Percent Auto 0.9 % (0.2-2.0); Eosinophils Absolute Auto 0.1 10^3/uL (0.0-0.7); Eosinophils Percent Auto 1.7 % (0.9-7.0); Hematocrit 38.2 % (42.0-54.0); Hemoglobin 11.7 g/dL (14.0-18.0); Immature Granulocytes Abs Auto 0.02 10^3/uL (0.00-0.03); Immature Granulocytes Pct Auto 0.3 % (0.0-0.5); Lymphocytes Absolute Auto 0.9 10^3/uL (1.2-3.8); Lymphocytes Percent Auto 12.5 % (20.5-60.0); Mean Corpuscular HGB Conc 30.6 g/dL (29.9-35.2); Mean Corpuscular Hemoglobin 26.7 pg (25.9-34.0); Mean Corpuscular Volume 87.2 fL (80.0-94.0); Mean Platelet Volume 9.6 fL (9.5-13.5); Monocytes Absolute Auto 0.5 10^3/uL (0.3-0.8); Monocytes Percent Auto 7.2 % (1.7-12.0); Neutrophils Absolute Auto 5.5 10^3/uL (1.4-6.5); Neutrophils Percent Auto 77.4 % (43.0-75.0); Platelet Count 274 10^3/uL (150-450); Red Blood Count 4.38 10^6/uL (4.70-6.10); Red Cell Distribution Width 15.3 % (11.0-15.0)
[2024-11-20 11:29] LABS: Anion Gap 10.8; BUN Creatinine Ratio 23.9; Carbon Dioxide 33.1 mmol/L (21.0-32.0); Chloride 104 mmol/L (98-107); Estimated GFR (African America >60 (>=60 mL/min/1.73m^2); Estimated GFR (Non-African Ame >60 (>=60 mL/min/1.73m^2); Glucose 121 mg/dL (74-106); INR 1.15; Partial Thromboplastin Time 29.9 sec (22.3-36.2); Potassium 3.9 mmol/L (3.5-5.1); Sodium 144 mmol/L (136-145)
== END 2024-11-20 09:48 | disposition home or self-care (01) ==
LOC: PST 09:49
PROVIDERS: PCP Family Medicine; Visit Provider Urology
DX: Z01.810 Encounter for preprocedural cardiovascular examination (principal); Z01.812 Encounter for preprocedural laboratory examination; D49.4 Neoplasm of unspecified behavior of bladder; R31.9 Hematuria, unspecified
CPT/HCPCS: 36415; 71046; 80048; 85025; 85610; 85730; 93005